=== PATIENT | male | born 1965 | race African-American/Black ===

== ENCOUNTER 2016-11-30 07:25 | Emergency (ER) | payer OTHER ==
[~2016-11-30] VITALS: Ht 188 cm; Wt 110.0 kg
[~2016-11-30 07:25] MED LIST: BUPR150T3 PO; PROZ20CA11 PO; TRAZ100 PO; Z.0.NO CURRENT MEDS
[2016-11-30 07:26] VITALS: BP 117/71; PULSE 89; RESP 12; TEMP 98.5; O2SAT 97
--- NOTE | 2016-11-30 07:38 | PD ---
HPI . right sided flank pain Chief Complaint: Flank/Kidney Pain Time Seen by Provider: 07:38 Travel History International Travel<30 days: No Contact w/Intl Traveler<30days: No Traveled to known affect area: No History of Present Illness HPI 50 yr old male with past medical hx of anxiety, depression and kidney stones here with c/o sudden onset of right flank pain for 1 day. Patient says he was working in his kitchen as usual and suddenly developed right sided pain. Patient was in his kitchen and made some homemade mayonnaise after eating it, he reports developing sharp sudden onset of right flank/rib pain. Pain is described as sharp sensation and 6/10. Patient denies any nausea, vomiting, abdominal pain, chest pain or shortness of breath. He denies any dysuria, increased urinary frequency or hesitancy. PFSH Past Medical History Anxiety: Yes Depression: Yes Developmental Delay: Yes (Major Depression, Anxiety Disorder, Bipolar) Diminished Hearing: No Gastrointestinal Disorders: Yes (BLEEDING HEMORHOIDS) Psychiatric: Yes Respiratory: Yes (COLD S/S FOR 2 WEEKS) Social History Alcohol Use: Yes (4-8PK BEER DAILY) Tobacco Use: Yes (1PPD) Substance Use: Yes Allergies-Medications (Allergen,Severity, Reaction): Coded Allergies: No Known Allergies (Unverified , 05/06/12) Reported Meds & Prescriptions Reported Meds & Active Scripts Active Ibuprofen 800 Mg Tab 800 Mg PO TID Flexeril (Cyclobenzaprine HCl) 5 Mg Tab 5 Mg PO BID Reported No Current Meds (Miscellaneous Medication) Misc Prozac (Fluoxetine HCl) 20 Mg Cap 20 Mg PO BID Trazodone HCl 100 Mg Tab 100 Mg PO HS Bupropion Hcl Xl (Bupropion HCl) 150 Mg Tab 150 Mg PO DAILY Review of Systems General / Constitutional: No: Fever Eyes: No: Visual changes HENT: No: Headaches Cardiovascular: No: Chest Pain or Discomfort Respiratory: No: Shortness of Breath Gastrointestinal: No: Abdominal Pain Genitourinary: Positive: Flank Pain, No: Dysuria Musculoskeletal: No: Pain Skin: No Rash Neurologic: No: Weakness Psychiatric: No: Depression Endocrine: No: Polydipsia Hematologic/Lymphatic: No: Easy Bruising Physical Exam Narrative GENERAL: AAO x 3, no acute distress, Well-nourished, well-developed patient. SKIN: Warm and dry. No visible rashes or bruising. HEAD: Normocephalic and atraumatic. EYES: No scleral icterus. No injection or drainage. ENT: No nasal drainage noted. Airway patent. NECK: Supple, trachea midline. No JVD. CARDIOVASCULAR: Regular rate and rhythm without murmurs, gallops, or rubs. RESPIRATORY: Breath sounds equal bilaterally. No accessory muscle use. No rhonchi or rales. GASTROINTESTINAL: Abdomen soft, non-tender, nondistended. Right flank tender to palpation, reaction out of portion to palpation. EXTREMITIES: No cyanosis or edema. BACK: Nontender without obvious deformity. PSYCH: AAO x 3, normal affect. Data Data Last Documented VS Vital Signs Date Time Temp Pulse Resp B/P Pulse Ox O2 Delivery O2 Flow Rate FiO2 11/30/16 07:26 98.5 89 12 117/71 97 Room Air Orders Urinalysis - C+S If Indicated (11/30/16 07:49) Ct Abd/Pel W/O Iv Contrast (11/30/16 07:49) Labs Laboratory Tests Test 11/30/16 08:00 Urine Color YELLOW Urine Turbidity CLEAR Urine pH 7.0 Urine Specific [place] 1.020 Urine Protein NEG mg/dL Urine Glucose (UA) NEG mg/dL Urine Ketones NEG mg/dL Urine Occult Blood NEG Urine Nitrite NEG Urine Bilirubin NEG Urine Urobilinogen LESS THAN 2.0 MG/DL Urine Leukocyte Esterase NEG Urine RBC LESS THAN 1 /hpf Urine WBC 1 /hpf Urine Squamous Epithelial <1 /hpf Cells Urine Mucus FEW /lpf Microscopic Urinalysis Comment CULT NOT INDICATED MDM Medical Decision Making Medical Screen Exam Complete: Yes Emergency Medical Condition: Yes Medical Record Reviewed: Yes Differential Diagnosis nephrolithiasis, rib pain, muscle strain Narrative Course 50 yr old male with past medical hx of anxiety, depression and kidney stones here with c/o sudden onset of right flank pain for 1 day. Patient says he was working in his kitchen as usual and suddenly developed right sided pain. Patient was in his kitchen and made some homemade mayonnaise after eating it, he reports developing sharp sudden onset of right flank/rib pain. Pain is described as sharp sensation and 6/10. Patient denies any nausea, vomiting, abdominal pain, chest pain or shortness of breath. He denies any dysuria, increased urinary frequency or hesitancy. Patient seen and examined. Case discussed with Dr. Holland. Recommend proceeding with CT of the abdomen and pelvis as well as urine. UA WNL. CT no obstruction or hydronephrosis. No stone. Small hydrocele. Discussed with patient. Advised him to follow up with his PCP. Patient verbalized understanding of instructions, questions were answered, and thanked me for their care. I advised them if their condition worsens, please return to the nearest emergency room for further care. Diagnosis Primary Impression: Muscle strain Additional Impression: Flank pain Patient Instructions: Flank Pain (ED), General Instructions, Muscle Strain (ED) Additional Instructions: Follow up with your primary care provider. Take medications as prescribed. It is ok to use muscle rub on the right side where your pain is located. Med/Other Pt SpecificInfo: Prescription(s) given Scripts Ibuprofen 800 Mg [id number] Mg PO TID #30 TAB Ref 0 Prov:Samira Brooke 11/30/16 Cyclobenzaprine (Flexeril)5 Mg Tab5 Mg PO BID #20 TAB Ref 0 Prov:Samira Brooke 11/30/16 Disposition: 01 DISCHARGE HOME Condition: Stable Samira Brooke Nov 30, 2016 07:38
[2016-11-30 08:26] LABS: BLOOD, URINE NEG (NEG); COMMENT (UR) CULT NOT INDICATED; CULTURE IF INDICATED CULT NOT INDICATED; GLUCOSE,URINE NEG (NEG); KETONE, URINE NEG (NEG); MUCUS URINE FEW /lpf (OCC); NITRITE,URINE NEG (NEG); SQUAMOUS EPITHELIAL CELL URINE <1 /hpf (0-5); URINE COLOR YELLOW (YELLW/STRAW)
--- NOTE | 2016-11-30 08:47 | PD ---
Data Data Last Documented VS Vital Signs Date Time Temp Pulse Resp B/P Pulse Ox O2 Delivery O2 Flow Rate FiO2 11/30/16 07:26 98.5 89 12 117/71 97 Room Air Orders Urinalysis - C+S If Indicated (11/30/16 07:49) Ct Abd/Pel W/O Iv Contrast (11/30/16 07:49) Labs Laboratory Tests Test 11/30/16 08:00 Urine Color YELLOW Urine Turbidity CLEAR Urine pH 7.0 Urine Specific [place] 1.020 Urine Protein NEG mg/dL Urine Glucose (UA) NEG mg/dL Urine Ketones NEG mg/dL Urine Occult Blood NEG Urine Nitrite NEG Urine Bilirubin NEG Urine Urobilinogen LESS THAN 2.0 MG/DL Urine Leukocyte Esterase NEG Urine RBC LESS THAN 1 /hpf Urine WBC 1 /hpf Urine Squamous Epithelial <1 /hpf Cells Urine Mucus FEW /lpf Microscopic Urinalysis Comment CULT NOT INDICATED MDM Supervised Visit with KYLE: Yes Narrative Course I, Dr. Holland, have reviewed the advance practice practioner's documentation and am in agreement, met with the patient face to face, made the diagnosis, and the medical decision making was done by me. *My assessment and Findings: 30-year-old male with history of ureterolithiasis here with 1 day of right sided flank pain that started while working in his kitchen. Pain is very reproducible with even light palpation on exam. There is no ecchymosis, skin changes. He denies any urinary symptoms. Given his sharp pain and history of ureterolithiasis considered proceeding versus pyelonephritis versus musculoskeletal. She does not have any right upper quadrant abdominal pain to suspect hepatobiliary pathology etiology. We'll check urine, CT for hopeful disposition to home. Patient Instructions: General Instructions, Flank Pain (ED) Disposition: 01 DISCHARGE HOME Condition: Stable Phyllis Holland MD Nov 30, 2016 08:47
--- NOTE | 2016-11-30 09:08 | RADRPT ---
EXAM DATE/TIME: 11/30/2016 08:19 [facility] COMPARISON: No previous studies available for comparison. INDICATIONS : Right flank pain for 1 day ORAL CONTRAST: No oral contrast ingested. RADIATION DOSE: 13.94 CTDIvol (mGy) MEDICAL HISTORY : Renal calculi. SURGICAL HISTORY : None. ENCOUNTER: Initial ACUITY: 1 day PAIN SCALE: 6/10 LOCATION: Right flank TECHNIQUE: Volumetric scanning of the abdomen and pelvis was performed. Using automated exposure control and ad justment of the mA and/or kV according to patient size, radiation dose was kept as low as reasonably achievable to obtain optimal diagnostic quality images. FINDINGS: LOWER LUNGS: The visualized lower lungs are clear. LIVER: Homogeneous density without lesion. There is no dilation of the biliary tree. No calcified gallston es. SPLEEN: Normal size without lesion. PANCREAS: Within normal limits. KIDNEYS: Normal in size and shape. There is no mass, stone, or hydronephrosis. The ureters appear unremarkabl e. ADRENAL GLANDS: Within normal limits. VASCULAR: There is no aortic aneurysm. BOWEL/MESENTERY: The stomach, small bowel, and colon demonstrate no acute abnormality. There is no free intraperitone al air or fluid. ABDOMINAL WALL: Within normal limits. RETROPERITONEUM: There is no lymphadenopathy. BLADDER: There is questionable mild bladder wall thickening. REPRODUCTIVE: A small right hydrocele is incidentally noted. INGUINAL: There is no lymphadenopathy or hernia. MUSCULOSKELETAL: Within normal limits for patient age. CONCLUSION: 1. Unremarkable kidneys with no renal calculi or obstruction. The ureters appear unremarkable as well . 2. A small hydrocele is incidentally noted on the right. Barrera Spain MD on November 30, 2016 at 9:05 Board Certified Radiologist. This report was verified electronically.
[2016-11-30] MEDS ORDERED: IBUP800T23 PO (09:33)
[2016-11-30] MEDS ORDERED: CYCL5TAB PO (09:33)
== END 2016-11-30 09:50 | disposition home or self-care (01) ==
LOC: NEPE 07:25
DX: S39.011A Strain of muscle, fascia and tendon of abdomen, initial encounter (principal); R07.81 Pleurodynia; F10.10 Alcohol abuse, uncomplicated; F17.210 Nicotine dependence, cigarettes, uncomplicated; X50.3XXA Overexertion from repetitive movements, initial encounter; Y93.G3 Activity, cooking and baking; Y92.000 Kitchen of unspecified non-institutional (private) residence as the place of occurrence of the external cause
CPT/HCPCS: 74176; 81001

== ENCOUNTER 2017-04-02 10:26 | Observation (INO) | payer OTHER ==
[~2017-04-02] VITALS: Ht 177.8 cm; Wt 90.0 kg
[~2017-04-02 10:26] MED LIST changes: +CYCL5TAB PO; +IBUP800T23 PO
[2017-04-02 10:30] VITALS: BP 120/71; PULSE 99; RESP 18; TEMP 97.8; O2SAT 97
[2017-04-02] MEDS ORDERED: SODIUM CHLOR 0.9% 1000 ML INJ 1,000 ML IV ONE (10:36)
--- NOTE | 2017-04-02 10:40 | PD ---
HPI Chief Complaint: Chest Pain Time Seen by Provider: 10:36 Travel History International Travel<30 days: No Contact w/Intl Traveler<30days: No Traveled to known affect area: No History of Present Illness HPI 51-year-old male with history of no sniff can past medical issues, presents to the ER today because he states that he had been drinking last night, had not eaten since sometime yesterday, and felt dehydrated and was walking to the store when he started getting palpitations, lightheadedness, chest discomfort. Symptoms lasted for about an hour, and he did not make it to the store. He denies any syncope, EMS found his blood sugar was 58 and gave him some D50 and IV fluids. He reports that the chest discomfort has gone away. He denies any vomiting, shortness of breath, fevers, or any other symptoms. Modifying Factors: None Associated Signs & Symptoms: Palpitations, dizziness, chest discomfort Risk Factors: Had been drinking alcohol last night PFSH Past Medical History Anxiety: Yes Depression: Yes Developmental Delay: Yes (Major Depression, Anxiety Disorder, Bipolar) Diminished Hearing: No Gastrointestinal Disorders: Yes (BLEEDING HEMORHOIDS) Psychiatric: Yes Respiratory: Yes (COLD S/S FOR 2 WEEKS) Social History Alcohol Use: Yes (4-8PK BEER DAILY) Tobacco Use: No (1PPD former) Substance Use: Yes Allergies-Medications (Allergen,Severity, Reaction): Coded Allergies: No Known Allergies (Unverified , 05/06/12) Reported Meds & Prescriptions Reported Meds & Active Scripts Active Ibuprofen 800 Mg Tab 800 Mg PO TID Flexeril (Cyclobenzaprine HCl) 5 Mg Tab 5 Mg PO BID Reported No Current Meds (Miscellaneous Medication) Misc Prozac (Fluoxetine HCl) 20 Mg Cap 20 Mg PO BID Trazodone HCl 100 Mg Tab 100 Mg PO HS Bupropion Hcl Xl (Bupropion HCl) 150 Mg Tab 150 Mg PO DAILY Review of Systems Except as stated in HPI: all other systems reviewed are Neg Physical Exam Narrative GENERAL: Well-developed middle age -[place] male patient currently in mild distress. Awake and oriented 3. SKIN: Focused skin assessment warm/dry. HEAD: Atraumatic. Normocephalic. EYES: Pupils equal and round. No scleral icterus. No injection or drainage. ENT: No nasal bleeding or discharge. Mucous membranes pink and moist. NECK: Trachea midline. No JVD. CARDIOVASCULAR: Regular rate and rhythm. No murmur appreciated. RESPIRATORY: No accessory muscle use. Clear to auscultation. Breath sounds equal bilaterally. GASTROINTESTINAL: Abdomen soft, non-tender, nondistended. Hepatic and splenic margins not palpable. MUSCULOSKELETAL: No obvious deformities. No clubbing. No cyanosis. No edema. NEUROLOGICAL: Awake and alert. No obvious cranial nerve deficits. Motor grossly within normal limits. Normal speech. PSYCHIATRIC: Appropriate mood and affect; insight and judgment normal. Data Data Last Documented VS Vital Signs Date Time Temp Pulse Resp B/P Pulse Ox O2 Delivery O2 Flow Rate FiO2 04/02/17 10:42 97 Room Air 04/02/17 10:37 90 16 04/02/17 10:30 97.8 120/71 Orders Electrocardiogram (04/02/17 10:36) Complete Blood Count With Diff (04/02/17 10:36) Comprehensive Metabolic Panel (04/02/17 10:36) Magnesium (Mg) (04/02/17 10:36) Ckmb (Isoenzyme) Profile (04/02/17 10:36) Troponin I (04/02/17 10:36) Act Partial Throm Time (Ptt) (04/02/17 10:36) Prothrombin Time / Inr (Pt) (04/02/17 10:36) Urinalysis - C+S If Indicated (04/02/17 10:36) Chest, Single Ap (04/02/17 10:36) Ecg Monitoring (04/02/17 10:36) Iv Access Insert/Monitor (04/02/17 10:36) Oximetry (04/02/17 10:36) Sodium Chloride 0.9% Flush (Ns Flush) (04/02/17 10:45) Sodium Chlor 0.9% 1000 Ml Inj (Ns 1000 M (04/02/17 10:36) Lipase (04/02/17 10:40) CKMB (04/02/17 10:40) CKMB% (04/02/17 10:40) Labs Laboratory Tests Test 04/02/17 04/02/17 10:40 11:38 White Blood Count 10.5 TH/MM3 Red Blood Count 4.32 MIL/MM3 Hemoglobin 13.4 GM/DL Hematocrit 40.3 % Mean Corpuscular Volume 93.2 FL Mean Corpuscular Hemoglobin 31.1 PG Mean Corpuscular Hemoglobin 33.4 % Concent Red Cell Distribution Width 13.6 % Platelet Count 278 TH/MM3 Mean Platelet Volume 7.7 FL Neutrophils (%) (Auto) 84.4 % Lymphocytes (%) (Auto) 11.5 % Monocytes (%) (Auto) 3.6 % Eosinophils (%) (Auto) 0.2 % Basophils (%) (Auto) 0.3 % Neutrophils # (Auto) 8.9 TH/MM3 Lymphocytes # (Auto) 1.2 TH/MM3 Monocytes # (Auto) 0.4 TH/MM3 Eosinophils # (Auto) 0.0 TH/MM3 Basophils # (Auto) 0.0 TH/MM3 CBC Comment DIFF FINAL Differential Comment Prothrombin Time 10.7 SEC Prothromb Time International 1.0 RATIO Ratio Activated Partial 22.5 SEC Thromboplast Time Sodium Level 142 MEQ/L Potassium Level 3.9 MEQ/L Chloride Level 106 MEQ/L Carbon Dioxide Level 22.1 MEQ/L Anion Gap 14 MEQ/L Blood Urea Nitrogen 17 MG/DL Creatinine 1.21 MG/DL Estimat Glomerular Filtration 77 ML/MIN Rate Random Glucose 72 MG/DL Calcium Level 8.4 MG/DL Magnesium Level 2.0 MG/DL Total Bilirubin 0.4 MG/DL Aspartate Amino Transf 47 U/L (AST/SGOT) Alanine Aminotransferase 41 U/L (ALT/SGPT) Alkaline Phosphatase 98 U/L Total Creatine Kinase 422 U/L Creatine Kinase MB 2.3 NG/ML Creatine Kinase MB % 0.5 % Troponin I LESS THAN 0.02 NG/ML Total Protein 7.5 GM/DL Albumin 3.8 GM/DL Urine Color YELLOW Urine Turbidity CLEAR Urine pH 5.0 Urine Specific [place] 1.026 Urine Protein 30 mg/dL Urine Glucose (UA) NEG mg/dL Urine Ketones 80 mg/dL Urine Occult Blood NEG Urine Nitrite NEG Urine Bilirubin NEG Urine Urobilinogen LESS THAN 2.0 MG/DL Urine Leukocyte Esterase NEG Urine WBC LESS THAN 1 /hpf Urine Bacteria RARE /hpf Urine Hyaline Casts 4 /lpf Urine Mucus FEW /lpf Microscopic Urinalysis Comment CULT NOT INDICATED MDM Medical Decision Making Medical Screen Exam Complete: Yes Emergency Medical Condition: Yes Medical Record Reviewed: Yes Interpretation(s) EKG shows NSR, no ST elevation or depression, and no arrhythmias. Nonspecific T -wave inversions in 3 and aVF. Laboratory Tests Test 04/02/17 04/02/17 10:40 11:38 Red Blood Count 4.32 MIL/MM3 (4.50-5.90) Neutrophils (%) (Auto) 84.4 % (16.0-70.0) Neutrophils # (Auto) 8.9 TH/MM3 (1.8-7.7) Activated Partial 22.5 SEC Thromboplast Time (24.3-30.1) Estimat Glomerular Filtration 77 ML/MIN (>89) Rate Random Glucose 72 MG/DL (74-106) Calcium Level 8.4 MG/DL (8.5-10.1) Aspartate Amino Transf 47 U/L (15-37) (AST/SGOT) Total Creatine Kinase 422 U/L (39-308) Troponin I LESS THAN 0.02 NG/ML (0.02-0.05) Urine Protein 30 mg/dL (NEG-TRACE) Urine Ketones 80 mg/dL (NEG) Urine Bacteria RARE /hpf (NONE) Urine Mucus FEW /lpf (OCC) Differential Diagnosis ACS versus dysrhythmias versus metabolic issues versus gastritis versus pancreatitis Narrative Course Patient's blood sugars were initially low and had been given treatment. At this point, his blood sugars are very high. He was given IV fluids and had been given a small dose of insulin. EKG did show some minor changes in the inferior leads. Patient has no current chest pains. At this point, it is unclear whether the symptoms are cardiac, and my plan would be to admit the patient for further cardiac evaluation. Diagnosis Primary Impression: Chest pain Admitting Information Admitting Physician Requests: Silvia Calderon MD Apr 02, 2017 10:40
[2017-04-02 10:42] VITALS: O2SAT 97
[2017-04-02] MEDS ORDERED: SODIUM CHLORIDE 0.9% FLUSH 10 ML FLUSH IVF PRN (10:45)
[2017-04-02 10:51] LABS: AUTOMATED NEUTROPHIL # 8.9 TH/MM3 (1.8-7.7); BASOPHIL % 0.3 % (0.0-2.0); EOSINOPHIL % 0.2 % (0.0-4.0); HEMATOCRIT 40.3 % (39.0-51.0); HEMO FLAGS DIFF FINAL; LYMPH % 11.5 % (9.0-44.0); LYMPHOCYTE # 1.2 TH/MM3 (1.0-4.8); MEAN CELL VOLUME 93.2 FL (80.0-100.0); MEAN CORPUSCULAR HEMOGLOBIN 31.1 PG (27.0-34.0); MEAN CORPUSCULAR HGB CONC 33.4 % (32.0-36.0); MONO % 3.6 % (0.0-8.0); NEUT % 84.4 % (16.0-70.0); PLATELET COUNT 278 TH/MM3 (150-450); RED BLOOD COUNT 4.32 MIL/MM3 (4.50-5.90); RED CELL DISTRIBUTION WIDTH 13.6 % (11.6-17.2); WHITE BLOOD COUNT 10.5 TH/MM3 (4.0-11.0)
[2017-04-02 11:00] LABS: APTT (PATIENT) 22.5 SEC (24.3-30.1); PROTHROMBIN TIME - PATIENT 10.7 SEC (9.8-11.6)
[2017-04-02 11:17] LABS: ALKALINE PHOSPHATASE 98 U/L (45-117); CREATINE KINASE 422 U/L (39-308); TOTAL BILIRUBIN ADULT 0.4 MG/DL (0.2-1.0)
[2017-04-02 11:21] LABS: ALT (GPT) 41 U/L (12-78); ANION GAP 14 MEQ/L (5-15); AST (GOT) 47 U/L (15-37); BICARBONATE 22.1 MEQ/L (21.0-32.0); BLOOD UREA NITROGEN 17 MG/DL (7-18); CHLORIDE 106 MEQ/L (98-107); GLOMERULAR FILTRATION RATE 77 ML/MIN (>89); POTASSIUM 3.9 MEQ/L (3.5-5.1); SODIUM (NA) 142 MEQ/L (136-145)
[2017-04-02 11:29] LABS: CKMB 2.3 NG/ML (0.5-3.6)
[2017-04-02 12:05] LABS: BACTERIA, URINE RARE /hpf; BLOOD, URINE NEG (NEG); COMMENT (UR) CULT NOT INDICATED; CULTURE IF INDICATED CULT NOT INDICATED; GLUCOSE,URINE NEG (NEG); HYALINE CAST, URINE 4 /lpf (RARE); KETONE, URINE 80 mg/dL (NEG); MUCUS URINE FEW /lpf (OCC); NITRITE,URINE NEG (NEG); URINE COLOR YELLOW (YELLW/STRAW)
--- NOTE | 2017-04-02 12:12 | RADRPT ---
EXAM DATE/TIME: 04/02/2017 10:53 [facility] COMPARISON: No previous studies available for comparison. INDICATIONS : Cough and fever. MEDICAL HISTORY : None. SURGICAL HISTORY : None. ENCOUNTER: Initial ACUITY: 2 days PAIN SCORE: 0/10 LOCATION: Bilateral chest FINDINGS: A single view of the chest demonstrates the lungs to be symmetrically aerated without evidence of mas s, infiltrate or effusion. The cardiomediastinal contours are unremarkable. Osseous structures are intact. CONCLUSION: No acute disease. José Miguel Schwartz MD FACR on April 02, 2017 at 12:05 Board Certified Radiologist. This report was verified electronically.
[2017-04-02] MEDS ORDERED: ONDANSETRON HCL 4 MG/2 ML VIAL IV PRN (12:45)
[2017-04-02] MEDS ORDERED: NITROGLYCERIN 0.4 MG SL 25 TABS/BTL SL PRN (12:45)
[2017-04-02] MEDS ORDERED: ACETAMINOPHEN 500 MG CPLT PO PRN (12:45)
[2017-04-02 13:18] VITALS: O2SAT 97
[2017-04-02 13:45] VITALS: BP 124/73; PULSE 103; RESP 16; TEMP 98.2; O2SAT 98
--- NOTE | 2017-04-02 14:30 | EKG ---
Date Performed: 04/02/2017 Time Performed: 10:46:15 PTAGE: 51 years EKG: Sinus rhythm NORMAL ECG INTERPRETATION BASED ON A DEFAULT AGE OF 40 YEARS PREVIOUS TRACING : 05/09/2012 22.37 Since previous tracing, no significant change noted DOCTOR: Jared Abrams Interpretating Date/Time 04/05/2017 07:08:24
--- NOTE | 2017-04-02 14:47 | HHI.HP ---
HPI Primary Care Physician No Primary Care Physician Chief Complaint Chest pain History of Present Illness 51-year-old male with no significant cardiovascular disease risk presents to emergency room for further evaluation of chest pain. Onset this afternoon. Location left anterior chest. Characterized as pressure. Associated symptoms included diaphoresis and shortness of breath. Denying nausea. Duration was approximately 1 1/2 hours. No radiation of pain per se although states his left neck felt stiff. No known precipitating or relieving factors. Endorses he has not gait and feels somewhat dehydrated. Denies any similar chest pain in the past. Per emergency room record EMS found his blood sugar to be 58. IV fluids and D50 provided in ER. Blood sugars have been stable since. Review of Systems General: No fatigue,weakness, fever, chills, or recent illness HEENT: No [place], no nasal congestion or drainage CV: As stated above. Denies any current chest pain or pressure. Experienced palpitations and dizziness during chest pain episode. RESP: No SOB or coughing GI: No nausea or vomiting, bowel changes. No change in appetite, no unintentional weight gain or weight loss : No dysuria, urgency, frequency EXT: No lower leg edema, no paraesthesias MS: No discomfort or change in ROM NEURO: No change in memory, dizziness, difficulty with balance, LOC, motor/ sensory deficits PSYCH: History of anxiety, depression, bipolar states he is stable on his current medication regimen. No suicidal ideation. SKIN: No rashes, no concerning lesions Past Family Social History Allergies: Coded Allergies: No Known Allergies (Unverified , 05/06/12) Past Medical History Bipolar disorder, major depression, anxiety Past Surgical History None Reported Medications Active Ibuprofen 800 Mg Tab 800 Mg PO TID Flexeril (Cyclobenzaprine HCl) 5 Mg Tab 5 Mg PO BID Prozac (Fluoxetine HCl) 20 Mg Cap 20 Mg PO BID Trazodone HCl 100 Mg Tab 100 Mg PO HS Bupropion Hcl Xl (Bupropion HCl) 150 Mg Tab 150 Mg PO DAILY Active Ordered Medications Current Medications Medications (Trade) Dose Ordered Sig/Nurys Route Start Time Stop Time Status Last Admin (Tylenol) 500 mg Q4H PRN PO 04/02/17 12:45 (Zofran Inj) 4 mg Q6H PRN IV 04/02/17 12:45 (Nitrostat Sl) 0.4 mg Q5M PRN SL 04/02/17 12:45 (Aspirin) 325 mg DAILY PO 04/03/17 09:00 Family History Noncontributory for early onset cardiovascular disease Social History No known diabetes, hypertension, hyperlipidemia. Former smoker. Endorses daily alcohol 4 beers per night. Denies any illegal drug use. Endorses a he lives a sedentary lifestyle and is not active. He is unemployed at this time and currently homeless. Past cardiac testing None Physical Exam Vital Signs Vital Signs Date Time Temp Pulse Resp B/P Pulse Ox O2 Delivery O2 Flow Rate FiO2 04/02/17 13:45 98.2 103 16 124/73 98 04/02/17 13:18 97 04/02/17 10:42 97 Room Air 04/02/17 10:37 90 16 Room Air 04/02/17 10:30 97.8 99 18 120/71 97 Physical Exam GENERAL: Alert WN, WD, NAD, pleasant, male HEAD: NC, AT EYES: Sclera clear NECK: Supple, no masses, trachea midline CV: RRR, without murmur, rub, gallop, no JVD, S1-S2 no S3-S4. RESP: Clear lungs throughout bilateral, no crackles, wheeze, rhonchi, symmetrical chest rise, nonlabored, able to speak in full sentences ABD: Soft, NT, ND, no masses, positive bowel tones EXT: Pulses +24, no dependent edema MS: Normal tone 4 extremities, nontender, no obvious deformities, full range of motion NEURO: CN II through CN XII grossly intact, motor strength 5/5, gait WNL PSYCH: A+O 3, pleasant affect, appropriate speech, appropriate mood and affect , insight and judgment SKIN: Normal turgor, normal texture, no lesions, no rashes Laboratory Laboratory Tests Test 04/02/17 04/02/17 10:40 11:38 White Blood Count 10.5 Red Blood Count 4.32 Hemoglobin 13.4 Hematocrit 40.3 Mean Corpuscular Volume 93.2 Mean Corpuscular Hemoglobin 31.1 Mean Corpuscular Hemoglobin 33.4 Concent Red Cell Distribution Width 13.6 Platelet Count 278 Mean Platelet Volume 7.7 Neutrophils (%) (Auto) 84.4 Lymphocytes (%) (Auto) 11.5 Monocytes (%) (Auto) 3.6 Eosinophils (%) (Auto) 0.2 Basophils (%) (Auto) 0.3 Neutrophils # (Auto) 8.9 Lymphocytes # (Auto) 1.2 Monocytes # (Auto) 0.4 Eosinophils # (Auto) 0.0 Basophils # (Auto) 0.0 CBC Comment DIFF FINAL Differential Comment Prothrombin Time 10.7 Prothromb Time International 1.0 Ratio Activated Partial 22.5 Thromboplast Time Sodium Level 142 Potassium Level 3.9 Chloride Level 106 Carbon Dioxide Level 22.1 Anion Gap 14 Blood Urea Nitrogen 17 Creatinine 1.21 Estimat Glomerular Filtration 77 Rate Random Glucose 72 Calcium Level 8.4 Magnesium Level 2.0 Total Bilirubin 0.4 Aspartate Amino Transf 47 (AST/SGOT) Alanine Aminotransferase 41 (ALT/SGPT) Alkaline Phosphatase 98 Total Creatine Kinase 422 Creatine Kinase MB 2.3 Creatine Kinase MB % 0.5 Troponin I LESS THAN 0.02 Total Protein 7.5 Albumin 3.8 Urine Color YELLOW Urine Turbidity CLEAR Urine pH 5.0 Urine Specific [place] 1.026 Urine Protein 30 Urine Glucose (UA) NEG Urine Ketones 80 Urine Occult Blood NEG Urine Nitrite NEG Urine Bilirubin NEG Urine Urobilinogen LESS THAN 2.0 Urine Leukocyte Esterase NEG Urine WBC LESS THAN 1 Urine Bacteria RARE Urine Hyaline Casts 4 Urine Mucus FEW Microscopic Urinalysis Comment CULT NOT INDICATED Result Diagram: 04/02/17 1040 04/02/17 1040 Imaging Last Impressions Chest X-Ray 04/02/17 1036 Signed Impressions: Service Date/Time: Sunday, April 02, 2017 10:53 - CONCLUSION: No acute disease. José Miguel Schwartz MD FACR Course EKGs Normal sinus rhythm, normal axis, no ST or T-segment changes Assessment and Plan Assessment and Plan #1 Chest painadmitted to chest pain center. Will rule out with 2 sets of EKGs and cardiac enzymes before proceeding with a Tony Protocol stress test. Naturally if stress test unremarkable will be discharged later this afternoon. #2 Bipolarcontinue Prozac, trazodone, bupropion Encouraged drinking plenty of fluids, eating a well-balanced diet, and avoiding alcohol. Yari Castorena Apr 02, 2017 14:47
[2017-04-02 16:07] VITALS: BP 114/63; PULSE 103; RESP 16; TEMP 98.6; O2SAT 98
[2017-04-02 16:42] LABS: CREATINE KINASE 372 U/L (39-308)
[2017-04-02 16:54] LABS: CKMB 2.1 NG/ML (0.5-3.6)
--- NOTE | 2017-04-02 18:06 | HHI.DCPOC ---
Discharge Care Plan Diagnosis: (1) Atypical chest pain Goals to Promote Your Health * To prevent worsening of your condition and complications * To maintain your health at the optimal level Directions to Meet Your Goals Take your medications as prescribed Follow your dietary instruction Follow activity as directed Keep your appointments as scheduled Take your immunizations and boosters as scheduled If your symptoms worsen call your PCP, if no PCP go to Urgent Care Center or Emergency Room Smoking is Dangerous to Your Health. Avoid second hand smoke Call the 24-hour hour crisis hotline for domestic abuse at Yari Castorena Apr 02, 2017 18:06
[2017-04-02 19:30] VITALS: BP 127/77; PULSE 97; RESP 19; TEMP 98.2; O2SAT 100
[2017-04-03] MEDS ORDERED: ASPIRIN 325 MG TAB PO SCH (09:00)
--- NOTE | 2017-04-03 11:07 | EKG ---
Date Performed: 04/02/2017 Time Performed: 16:34:47 PTAGE: 51 years EKG: Sinus rhythm NORMAL ECG WARNING: DATA QUALITY MAY AFFECT INTERPRETATION PREVIOUS TRACING : 04/02/2017 10.46 DOCTOR: Willian Mack Interpretating Date/Time 04/05/2017 07:08:33
--- NOTE | 2017-04-03 11:20 | TR ---
Date Performed: 04/02/2017 Time Performed: 17:27:25 DOCTOR: Willian Mack DRUG LIST: CLINICAL HISTORY: REASON FOR TEST: Chest pain REASON FOR ENDING: OBSERVATION: CONCLUSION: Tony protocol completed. Stopped sec to reaching target heart rate and leg fatigue. Maximum FQ=868 Target HR Achieved=85.0% Maximum HH=736/74 Total Exercise Time=5:32. No reprod chest pain. No st t segment changes. Normal bp response. Fair exercise tolerance. Recovery quick and unrema rkable. COMMENTS: CONCLUSION: Normal exercise treadmill. No evidence of ischemia.
== END 2017-04-02 21:51 | disposition home or self-care (01) ==
LOC: NEPE 10:26 → NEDA 12:23 → NEPGCP 13:42
PROVIDERS: ADMIT Internal Medicine Cardiovascular Disease; ATTEND Internal Medicine Cardiovascular Disease
DX: R07.89 Other chest pain (principal); F31.9 Bipolar disorder, unspecified; F41.9 Anxiety disorder, unspecified; Z87.891 Personal history of nicotine dependence; Z56.0 Unemployment, unspecified
CPT/HCPCS: 71010; 80053; 81001; 82550; 82552; 83690; 83735; 84484; 85025; 85610; 85730; 93005; 93017; 96360; 96361; 99285; G0378; J7030